=== PATIENT | female | born 1955 | race Caucasian/White ===

== ENCOUNTER 2021-06-17 14:14 | Outpatient (CLI) | payer MEDICARE | END 2021-06-17 14:15 | disposition home or self-care (01) | LOC: BICMAMMO 14:14 | PROVIDERS: ATTEND Family Medicine | DX: Z12.31 Encounter for screening mammogram for malignant neoplasm of breast (principal) | CPT/HCPCS: 77063; 77067 ==

== ENCOUNTER 2025-03-09 10:13 | Outpatient (CLI) | payer MEDICARE | END 2025-03-09 10:14 | disposition home or self-care (01) | LOC: BICRAD 10:13 | PROVIDERS: ATTEND Family Medicine | DX: R07.81 Pleurodynia (principal) | CPT/HCPCS: 71046 ==